=== PATIENT | male | born 1985 | race Hispanic/Latino ===

== ENCOUNTER 2016-11-16 21:36 | Emergency (ER) | payer SELFPAY ==
[2016-11-16 23:41] LABS: HEMATOCRIT 39.3 % (39.0-50.0); HEMOGLOBIN 13.4 g/dl (14.0-18.0); IMMATURE GRANULOCYTES 0.3 % (0.0-1.0); MEAN CELL VOLUME 86.9 fL CALC (80.0-100.0); MEAN CORPUSCULAR HGB 29.6 pG CALC (26.0-32.0); MEAN CORPUSCULAR HGB CONC 34.1 g/L CALC (32.0-36.0); NEUT# 1.72 thou/uL (1.82-7.42); RED BLOOD COUNT 4.52 mill/uL (4.70-6.10); RED CELL DISTRI WIDTH 13.2 % (11.5-15.5)
[2016-11-17 00:01] LABS: ALBUMIN 4.5 g/dL (3.2-5.0); ALKALINE PHOSPHATASE 63 u/l (38-126); ANION GAP 22 (6-22 (CALC)); BILIRUBIN, TOTAL 0.5 mg/dL (0.0-1.4); BUN 5 mg/dL (9-20); BUN/CREATININE RATIO 7 (12-20 (CALC)); CALCIUM 8.6 mg/dL (8.4-10.2); CARBON DIOXIDE 24 mmol/l (22-30); CHLORIDE 107 mmol/l (95-108); CREATININE 0.7 mg/dL (0.7-1.3); GFR > 60 ML/MIN (>=60 (CALC)); GFR FOR AFR.AMER. > 60 ML/MIN (>=60 (CALC)); GLUCOSE 128 mg/dL (75-110); POTASSIUM 3.7 mmol/l (3.5-5.1); SGOT/AST 77 u/l (17-59); SGPT/ALT 74 u/l (21-72); SODIUM 149 mmol/l (137-146); TOTAL PROTEIN 8.1 g/dL (6.3-8.2)
[2016-11-17] MEDS ORDERED: CIPROFLOXACN500 MG PO (01:09)
[2016-11-17] MEDS ORDERED: CODEINE/GUAIFEN1 SOL PO (01:09)
[2016-11-17] MEDS ORDERED: PERCOCET 5/325M1 TAB PO (02:37)
[2016-11-17 02:39] VITALS: BP 128/78
== END 2016-11-17 02:39 | disposition home or self-care (01) | DRG 914 ==
LOC: ED 21:36
PROVIDERS: Emergency Medicine
DX: S09.10XA Unspecified injury of muscle and tendon of head, initial encounter (principal); R51 Headache; S39.001A Unspecified injury of muscle, fascia and tendon of abdomen, initial encounter; R10.9 Unspecified abdominal pain; Y04.8XXA Assault by other bodily force, initial encounter
CPT/HCPCS: Q9967

== ENCOUNTER 2021-07-21 07:41 | Emergency (ER) | payer SELFPAY ==
[~2021-07-21] VITALS: Ht 167.6 cm; Wt 70.0 kg
[~2021-07-21 07:41] MED LIST: ACYCLOVIR800 MG PO; BACTRIM DS1 TAB PO; CIPROFLOXACN500 MG PO; CODEINE/GUAIFEN1 SOL PO; MEDDOSEPAK OR; NAPROSYN500 MG PO; NO HOME MEDS; PERCOCET 5/325M1 TAB PO
[2021-07-21 08:55] LABS: HEMATOCRIT 41.8 % (39.0-50.0); IMMATURE GRANULOCYTES 0.2 % (0.0-5.0); MEAN CELL VOLUME 97.2 fL CALC (80.0-100.0); MEAN CORPUSCULAR HGB 32.6 pG CALC (26.0-32.0); MEAN CORPUSCULAR HGB CONC 33.5 g/dL CAL (32.0-36.0); NEUT# 2.41 thou/uL (1.82-7.42); RED BLOOD COUNT 4.3 mill/uL (4.70-6.10); RED CELL DISTRI WIDTH 12.3 % (11.5-15.5)
[2021-07-21 09:05] LABS: URINE BILIRUBIN - DIPSTICK NEGATIVE (NEGATIVE); URINE BLOOD DIPSTICK NEGATIVE (NEGATIVE); URINE COLOR YELLOW; URINE GLUCOSE - DIPSTICK NEGATIVE (NEGATIVE); URINE KETONE NEGATIVE (NEGATIVE); URINE LEUK ESTERASE NEGATIVE (NEGATIVE); URINE NITRITE - DIPSTICK NEGATIVE (Negative); URINE PROTEIN - DIPSTICK NEGATIVE (NEG-TRACE); URINE SPECIFIC GRAVITY <=1.005; URINE UROBILINOGEN - DIPSTICK 0.2 E.U./dL (0.2)
[2021-07-21 09:14] LABS: ALBUMIN 4.5 g/dL (3.2-5.0); ANION GAP 19 (6-22 (CALC)); BUN 5 mg/dL (9-20); BUN/CREATININE RATIO 9 (12-20 (CALC)); CARBON DIOXIDE 26 mmol/l (22-30); CHLORIDE 105 mmol/l (95-108); CREATININE 0.5 mg/dL (0.7-1.3); GFR > 60 ML/MIN (>=60 (CALC)); GFR FOR AFR.AMER. > 60 ML/MIN (>=60 (CALC)); LIPASE 164 u/l (23-300); POTASSIUM 3.8 mmol/l (3.5-5.1); SODIUM 147 mmol/l (137-146); TOTAL PROTEIN 8.4 g/dL (6.3-8.2)
[2021-07-21 09:22] LABS: ALKALINE PHOSPHATASE 104 u/l (38-126); BILIRUBIN, TOTAL 0.8 mg/dL (0.0-1.4); SGOT/AST 298 u/l (17-59)
[2021-07-21 09:53] VITALS: BP 123/76
[2021-07-21] MEDS ORDERED: PROTONIX40 M2 PO (11:25)
== END 2021-07-21 12:26 | disposition home or self-care (01) | DRG 948 ==
LOC: ED 07:41
PROVIDERS: Family Medicine
DX: R74.01 Elevation of levels of liver transaminase levels (principal); K29.70 Gastritis, unspecified, without bleeding; I10 Essential (primary) hypertension; Z72.89 Other problems related to lifestyle
CPT/HCPCS: Q9967

== ENCOUNTER 2022-07-31 20:44 | Emergency (ER) | payer OTHER ==
[~2022-07-31] VITALS: Ht 167.6 cm; Wt 82.0 kg
[~2022-07-31 20:44] MED LIST changes: +PROTONIX40 M2 PO
[2022-08-01 00:26] VITALS: BP 131/89
== END 2022-08-01 00:30 | disposition home or self-care (01) | DRG 923 ==
LOC: ED 20:44
DX: Z04.1 Encounter for examination and observation following transport accident (principal)